=== PATIENT | female | born 1960 | race Caucasian/White ===

== ENCOUNTER 2021-10-18 19:00 | Emergency (ER) | payer SELFPAY ==
[2021-10-18] MEDS ORDERED: Midazolam HCl 5 mg/ml Vial ONE ×2 (19:12→19:55)
[2021-10-18 19:22] LABS: Actual Bicarbonate (HCO3a) 14.5 mEq/L (22-28); Analyzer IN Cardio ER; Base Excess (BEa) -17.3 mEq/L (-2.0 to +3.0); CO2 Tension 58.7 mmHg (35.0-45.0); Calcium, Ionized (arterial) 1.28 mmol/L (1.12-1.30); Carboxyhemoglobin (COHb) 41.1 gm% (0.0-3.0); Hemoglobin (Hb) 17.1 g/dL (12.0-16.0); O2 Tension (PaO2), arterial 63.1 mmHg (80.0-100.0); Potassium - ABG Lab 4.07 mmol/L (3.70-5.30); Puncture Site RRA; pH, Arterial 7.01 (7.35-7.45)
[2021-10-18 19:23] LABS: ALV-art Gradient 576.525 mmHg (0-20)
[2021-10-18 19:25] LABS: Hemoglobin 17.2 g/dL (12.0-16.0); Mean Corpuscular HGB CONC 35.7 g/dL (32.0-36.0); Mean Corpuscular Hemoglobin 32.6 pg (27.0-31.0); Mean Corpuscular Volume 91.1 fL (78.0-98.0); Mean Platelet Volume 8.3 fL (7.4-10.4); Platelet Count 269 thou/uL (130-400); RBC Distribution Width 11.2 % (11.5-14.5); Red Blood Cell (RBC) Count 5.27 mill/uL (4.20-5.40); White Blood Cell (WBC) Count 16.5 thou/uL (4.8-10.8)
[2021-10-18 19:30] LABS: Base Excess (BEa) -10.4 mEq/L (-2.0 to +3.0); CO2 Tension 37.3 mmHg (35.0-45.0); Calcium, Ionized (arterial) 1.14 mmol/L (1.12-1.30); Carboxyhemoglobin (COHb) 32.4 gm% (0.0-3.0); O2 Tension (PaO2), arterial 483.7 mmHg (80.0-100.0); Potassium - ABG Lab 3.84 mmol/L (3.70-5.30)
[2021-10-18 19:34] LABS: ALT (SGPT) 51 U/L (8-55); AST (SGOT) 67 U/L (5-34); Albumin 4.1 g/dL (3.5-5.0); Alkaline Phosphatase 100 U/L (40-110); Anion Gap 28 mmol/L (10-20); BUN (Urea Nitrogen) 11 mg/dL (9.8-20.1); Calc. Creatinine Clearance 0 mL/min (70-130); Calcium 10.5 mg/dL (7.8-10.44); Carbon Dioxide 16 mmol/L (22-29); Chloride 98 mmol/L (98-107); Globulin 3.6 g/dL (2.4-3.5); Glucose 205 mg/dL (70-105); Potassium 4.3 mmol/L (3.5-5.1); Protein, Total 7.7 g/dL (6.0-8.3); Sodium 138 mmol/L (136-145)
[2021-10-18 19:36] LABS: INR-International Normal Ratio 1.1
[2021-10-18 19:37] LABS: PTT 33.9 sec (22.9-36.1)
[2021-10-18 19:39] LABS: ALV-art Gradient 182.675 mmHg (0-20); Puncture Site RRA; pH, Arterial 7.25 (7.35-7.45)
[2021-10-18] MEDS ORDERED: Cyanide Antidote Kit ONE (19:41)
[2021-10-18] MEDS ORDERED: Fentanyl CADD 100 ML IV SCH (19:45)
[2021-10-18 19:50] LABS: Eosinophils 1 % (0-10); Lymphocytes 13 % (21-51); MDiff Complete? YES; Monocytes 8 % (0-10); Neutrophil 12 % (42-75); Platelet Morphology Comment Appears Adequate; Polychromasia SLIGHT = 2-3 cells (100X) (0-2/hpf); Reactive Lymphocytes 65 % (0-10)
== END 2021-10-18 22:47 | disposition short-term general hospital (02) ==
LOC: ERS 19:00 → EDBD 19:00 → ERS 22:47
DX: T59.811A Toxic effect of smoke, accidental (unintentional), initial encounter (principal); T58.91XA Toxic effect of carbon monoxide from unspecified source, accidental (unintentional), initial encounter
CPT/HCPCS: 36415; 36600; 51702; 70450; 71045; 80053; 82805; 83605; 84484; 85025; 85610; 85730; 93005; 94002; G0390; J2250